=== PATIENT | female | born 1935 | race Caucasian/White ===

== ENCOUNTER 2017-07-09 10:18 | Observation (INO) | payer OTHER, BC, MEDICARE ==
[2017-07-09] MEDS ORDERED: SODIUM CHLORIDE 0.9% FLUSH 10 ML FLUSH IVF (10:30)
[2017-07-09] MEDS: NITROGLYCERIN 0.4 MG SL 25 TABS/BTL SL ×2 (10:45→10:50)
[2017-07-09 11:34] LABS: AUTOMATED NEUTROPHIL # 3.2 TH/MM3 (1.8-7.7); BASOPHIL # 0.1 TH/MM3 (0-0.2); BASOPHIL % 1.3 % (0.0-2.0); EOSINOPHIL # 0.2 TH/MM3 (0-0.4); EOSINOPHIL % 3.2 % (0.0-4.0); HEMATOCRIT 43.4 % (35.0-46.0); HEMO FLAGS DIFF FINAL; HEMOGLOBIN 14.4 GM/DL (11.6-15.3); LYMPH % 34.6 % (9.0-44.0); LYMPHOCYTE # 2.1 TH/MM3 (1.0-4.8); MEAN CORPUSCULAR HEMOGLOBIN 30.3 PG (27.0-34.0); MEAN CORPUSCULAR HGB CONC 33.3 % (32.0-36.0); MEAN PLATELET VOLUME 7.4 FL (7.0-11.0); MONOCYTE # 0.5 TH/MM3 (0-0.9); NEUT % 52.9 % (16.0-70.0); PLATELET COUNT 316 TH/MM3 (150-450); RED BLOOD COUNT 4.76 MIL/MM3 (4.00-5.30); RED CELL DISTRIBUTION WIDTH 12.8 % (11.6-17.2)
[2017-07-09] MEDS: ONDANSETRON HCL 4 MG/2 ML VIAL IV PUSH (11:37)
[2017-07-09] MEDS: ASPIRIN 325 MG TAB PO (11:37)
[2017-07-09 11:43] LABS: APTT (PATIENT) 24.1 SEC (24.3-30.1); INTERNATIONAL NORMALIZED RATIO 0.9 RATIO; PROTHROMBIN TIME - PATIENT 9.5 SEC (9.8-11.6)
[2017-07-09 11:46] LABS: ALBUMIN 3.8 GM/DL (3.4-5.0); ANION GAP 6 MEQ/L (5-15); AST (GOT) 15 U/L (15-37); BLOOD UREA NITROGEN 20 MG/DL (7-18); CALCIUM 9.6 MG/DL (8.5-10.1); CHLORIDE 105 MEQ/L (98-107); CREATININE 0.81 MG/DL (0.50-1.00); GLOMERULAR FILTRATION RATE 68 ML/MIN (>89); GLUCOSE,RANDOM 96 MG/DL (74-106); MAGNESIUM 2.6 MG/DL (1.5-2.5); POTASSIUM 4.7 MEQ/L (3.5-5.1); SODIUM (NA) 141 MEQ/L (136-145)
[2017-07-09 11:51] LABS: ALKALINE PHOSPHATASE 89 U/L (45-117); ALT (GPT) 22 U/L (10-53); TOTAL BILIRUBIN ADULT 0.4 MG/DL (0.2-1.0); TOTAL PROTEIN 7.8 GM/DL (6.4-8.2); TROPONIN I LESS THAN 0.02 NG/ML (0.02-0.05)
[2017-07-09 11:52] LABS: CREATINE KINASE 79 U/L (26-192)
[2017-07-09] MEDS ORDERED: RESP: ALBUTEROL 2.5 MG/IPRATROPIUM 0.5 MG NEB (PRN) INH (13:30)
[2017-07-09] MEDS ORDERED: cloNIDine HCL 0.1 MG TAB PO (13:30)
[2017-07-09] MEDS ORDERED: ACETAMINOPHEN 500 MG CPLT PO (13:30)
[2017-07-09] MEDS ORDERED: ONDANSETRON HCL 4 MG/2 ML VIAL IV PUSH (13:30)
[2017-07-09] MEDS ORDERED: ACETAMINOPHEN/HYDROcodone 325 MG/7.5 MG TAB PO (13:30)
[2017-07-09] MEDS: PANTOPRAZOLE SOD 40 MG DELAYED RELEASE TAB PO (14:34)
[2017-07-09] MEDS: amLODIPine BESYLATE 5 MG TAB PO (14:34)
[2017-07-09 15:35] LABS: TROPONIN I LESS THAN 0.02 NG/ML (0.02-0.05)
[2017-07-09 15:47] LABS: CREATINE KINASE 64 U/L (26-192)
[2017-07-09 18:22] LABS: TROPONIN I LESS THAN 0.02 NG/ML (0.02-0.05)
[2017-07-09 18:35] LABS: CREATINE KINASE 51 U/L (26-192)
[2017-07-10] MEDS ORDERED: PILL SPLITTER OTHER (07:15)
[2017-07-10] MEDS: PANTOPRAZOLE SOD 40 MG DELAYED RELEASE TAB PO (07:47)
[2017-07-10] MEDS: ASPIRIN 325 MG TAB PO (07:47)
[2017-07-10] MEDS: amLODIPine BESYLATE 5 MG TAB PO (07:47)
[2017-07-10] MEDS: REGADENOSON INJ 0.4 MG/5 ML SYR (11:02)
== END 2017-07-10 13:55 | disposition home or self-care (01) ==
LOC: NEPE 10:18 → NEDA 12:16 → NEPGCP 13:52
DX: R07.89 Other chest pain (principal); R06.02 Shortness of breath; I10 Essential (primary) hypertension; E78.5 Hyperlipidemia, unspecified; I44.0 Atrioventricular block, first degree; R94.31 Abnormal electrocardiogram [ECG] [EKG]; M81.0 Age-related osteoporosis without current pathological fracture
CPT/HCPCS: 71046; 78452; 80053; 82550; 83735; 84484; 85025; 85610; 85730; 93005; 93017; 96374; 99285-25